=== PATIENT | male | born 1945 | race Caucasian/White ===

== ENCOUNTER 2016-11-17 11:42 | Day surgery (SDC) | payer MEDICARE, BC ==
--- NOTE | 2016-11-06 13:15 | HP ---
Chief Complaint - Chief Complaint Date of Service: 11/06/16 Chief Complaint: need a colonoscopy History of Present Illness: 71 yo male who had a colonoscopy over ten years ago. He states it revealed diverticulosis, but no polyps. He has some chronic constipation, but no chnages in bowel habits, no blood in stools and no weight loss. Paternal uncle had colon cancer. Mother had breast cancer. - Patient's Past Medical History Patient History - Cardiac/Respiratory: Hypertension, Hyperlipidemia Patient History - Cancer: Melanoma - face, Other - thymoma Patient History - Surgical Procedures: Cancer Surgery - thymoma and melanoma of face 11 years ago ([facility]), Colonoscopy, Other - neck dsc surgery - Family History Family History:: no untoward family reactions to anesthesia, no familial bleeding tendencies, no family history of clotting disorders, no family history of premature - Family History Mother Family History - Medical: Family History - Cancer: Breast Father Family History - Medical: - old age - Social History Living Situations: spouse Abuse History: No History of abuse Does anyone smoke in the home?: No Smoking Status: Never smoker Have you smoked in the past 12 months: No Alcohol Use: none Drug Use: none - Immunizations Immunizations Up to Date: Yes Hx Pneumococcal Vaccination: Yes History of Influenza Vaccine: Yes Review Of Systems (GEN) - Review of Systems Generalized/Overall Review: Absent: Weakness, Malaise, Fatigue, Weight loss, Weight gain EENTM: Present: No Symptoms Reported Respiratory: Absent: Cough, Shortness of Breath, Wheezing Cardiac: Absent: Chest Pain, Edema, Palpitations Abdominal: Present: Nausea, Constipation. Absent: Vomiting, Abdominal Pain, Diarrhea, Bright blood from rectum Genitourinary: Present: Hesitancy, Nocturia. Absent: Urgency Musculoskeletal: Present: Back Pain. Absent: Joint Pain, Joint Swelling Neurological: Present: Headache, Anxiety. Absent: Depressed Skin: Present: Rash. Absent: Dryness, Lesions Allergies/Adverse Reactions: Allergies Allergy/AdvReac Type Severity Reaction Status Date / Time Penicillins Allergy Mild Itching Verified 11/06/16 13:12 Home Medications: HOME MEDICATIONS Hydrochlorothiazide 25 mg PO DAILY 11/06/16 [Last Taken Unknown] Omeprazole 40 mg PO 11/06/16 [Last Taken Unknown] Reglan 10 mg PO DAILY 11/06/16 [Last Taken Unknown] Simvastatin 40 mg PO DAILY 11/06/16 [Last Taken Unknown] Exam - Exam Vital Signs: Ht 6' Wt 96kg BP 145/85 P 70 T 36.0 C Constitutional: Present: Alert, Oriented x3, Cooperative, No distress ENT Exam: Present: hearing grossly normal, other - facial scarring on right cheek Eye Exam: bilateral eye: normal inspection Neck: Present: non-tender, normal inspection Respiratory: Present: chest non-tender, lungs clear, normal breath sounds Cardiovascular/Chest: Present: normal peripheral pulses, regular rate, rhythm, no edema, no murmur Abdomen: Present: Normal bowel sounds, soft, nontender /Rectal: Present: Exam deferred Extremity: Present: normal range of motion, non-tender, normal inspection, no pedal edema Skin Exam: Present: normal color, warm/dry, no cyanosis Appearance: Present: appropriate appearance, appropriate insight, neat, no memory impairment Eye contact: Present: cooperative, good eye contact, normal speech Thoughts: Present: normal thought pattern, no apparent hallucination Assessment/Plan - Assessment/Plan (1) Screening for colon cancer Assessment: [facility] discussed for a colonoscopy with possible biopsy and or polypectomy. SUPREP discussed and need for anesthesia and ride home. He agrees. Problem: Acute (2) Esophagitis Problem: Chronic (3) HTN (hypertension) Problem: Chronic
[~2016-11-17 11:42] MED LIST: RINGERS SOLUTION,LACTATED 1,000 ML IV PRN
--- OUTSIDE RECORDS SUMMARY | 2016-11-17 11:46 | XMS REPORT | Continuity of Care Document ---
:1945 Author Organization [facility] ([facility]) Address [address] [place] [address] Phone [phone] Care Team Providers Name Role Phone Dmitri Ramsey Primary Care Provider [phone] Source Comments This disclosure is being made pursuant to the Care Everywhere program, applicable federal and state laws, and may not contain all informaitonavailable regarding this patient.[facility] ([facility]) Active Allergies and Adverse Reactions Allergen Noted Date Severity Reactions Comments Penicillins Urticaria (Hives) Current Medications Prescription Sig. Disp. Refills Start Date End Date Status aspirin 81 mg tablet take 81 mg by Active mouth daily. multivitamin tablet take 1 Tab by Active mouth daily. omeprazole (PRILOSEC) 20 Take 40 mg by Active mg capsule mouth daily. HYDROCHLOROTHIAZIDE PO Take 25 mg by Active mouth daily docusate (COLACE) 100 mg Take 100 mg by Active capsule mouth as needed. simvastatin 40 mg tablet Take 40 mg by Active mouth every evening. metoclopramide 10 mg Take 10 mg by Active tablet mouth daily. phenylephrine 1 % nasal use 2 Drops into Active solution both nostrils every 4 hours as needed. psyllium (METAMUCIL SF) Take 3.4 g by Active powder mouth as needed. Dilute in at least 8 ounces of water. sodium fluoride 1.1 % Apply 1 56 g 11 04/04/2015 Active dental gel application to the teeth at bedtime Nothing by mouth for 30 minutes after use. 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 Last Filed Vital Signs Vital Sign Reading Time Taken Blood Pressure 138/84 10/16/2016 9:25 AM [facility] Pulse 58 10/16/2016 9:25 AM [employer] Temperature 36.6 C (97.9 F) 10/16/2016 9:25 AM [employer] Respiratory Rate 16 04/10/2016 10:11 AM CDT Height 1.829 m (6') 04/10/2016 10:11 AM CDT Weight 92.987 kg (205 lb) 04/10/2016 10:11 AM CDT Body Mass Index 27.8 04/10/2016 10:11 AM CDT Oxygen Saturation 97% 04/10/2016 10:11 AM CDT Plan of Care Date Type Specialty Providers Description 11/23/2016 Appointment Dentistry Chief Comp: Patient Reported Reason For Visit 10/20/2017 Appointment Urology Wenceslao Bueno MD Subj: Appointment [address] [place] [address] [phone] (Fax) Health Maintenance Due Date Last Done Comments HCV Screening 1945 Hepatitis B Vaccine (1 of 3 - Primary 1945 Series) Tdap Vaccine 1957 Lipid Disorder Screening 1964 Td Vaccine 1964 Zoster Vaccine 2006 Pneumococcal Vaccine (1 of 2 - PCV13) 2011 Influenza Vaccine: Seasonal (#1) 03/16/2016 07/02/2014 (Previously completed), 05/18/2012 Prostate Cancer Screening 04/11/2016 04/11/2014, 09/11/2013, 05/19/2007 Colonoscopy 12/22/2017 12/23/2007 Results from Last 3 Months Not on file
[2016-11-17] MEDS ORDERED: RINGERS SOLUTION,LACTATED 1,000 ML IV PRN (13:06)
--- NOTE | 2016-11-17 13:09 | OR ---
Operative Report - Dictated Report Narrative: DATE OF PROCEDURE: 11/17/2069 PREOPERATIVE DIAGNOSIS: #1 Screening colonoscopy POSTOPERATIVE DIAGNOSIS: #1 Screening colonoscopy #2 sigmoid diverticulosis OPERATION: Colonoscopy SURGEON: Alfredo Zambrano M.D. [facility] ANESTHESIA : Rudolph Raymundo CRNA sedation INDICATIONS: This is a 71 year old male who presents for a screening colonoscopy. I have discussed the risks, benefits, indications, and contraindications for colonoscopy with the possibility of biopsy and/or polypectomy. He understands, agrees, and wishes to proceed. He has undergone a SUPREP and has tolerated it well. PROCEDURE: The patient was brought to the operating theater and placed into the left lateral decubitus position. The patient underwent sedation per anesthesia , and a digital rectal exam was performed. This was noted to be unremarkable. The patient was noted to have no internal or external hemorrhoids. The Olympus video colonoscope was introduced and advanced into the rectum. The rectum was normal in appearance. The scope was then advanced through the sigmoid, where a good amount of diverticular disease was noted. The scope was then advanced to the cecum using standard reduction techniques. The appendiceal orifice was noted. The ileocecal valve was noted. The prep appeared to be good with a [place] prep score of 7. There was some liquid brownish water that needed to be suctioned out throughout the entire colon. The scope was withdrawn slowly as the ascending, transverse, descending, and sigmoid colon were examined in a circumferential fashion. The scope was brought back into the rectum where it was retroflexed in the lower rectum was examined. The air was decompressed, and the scope was then removed. Withdrawal time was 8 minutes. POSTOPERATIVE CONDITION: The patient was awakened and taken to the ambulatory surgery center in good condition. No complications were encountered. FINDINGS: Diverticulosis but no signs of tumor or polyps Specimens: None EBL: 0 The findings were discussed with the patient and his . I recommend a follow -up colonoscopy in 10 years for screening purposes. Diverticulosis booklet was reviewed.
[2016-11-17 14:10] VITALS: BP 131/70
== END 2016-11-17 11:43 | disposition home or self-care (01) ==
LOC: AMB 11:42
PROVIDERS: ATTEND Surgery
PROC: 0DJD8ZZ Inspection of Lower Intestinal Tract, Via Natural or Artificial Opening Endoscopic (ICD-10-PCS; principal; 2016-11-17 13:00)
DX: Z12.11 Encounter for screening for malignant neoplasm of colon (principal); K57.30 Diverticulosis of large intestine without perforation or abscess without bleeding; I10 Essential (primary) hypertension; E78.5 Hyperlipidemia, unspecified; Z68.28 Body mass index [BMI] 28.0-28.9, adult; Z80.0 Family history of malignant neoplasm of digestive organs